=== PATIENT | female | born 1990 | race Caucasian/White ===

== ENCOUNTER 2017-10-01 01:39 | Emergency (ER) | payer OTHER, SELFPAY ==
[2017-10-01 01:56] VITALS: BP 138/96; PULSE 95; RESP 18; TEMP 36.4; O2SAT 100; BMI 36.0
--- NOTE | 2017-10-01 02:54 | ED.BACK ---
HPI - Back Pain/Injury General Chief Complaint: Back Pain/Injury Stated Complaint: BACK PAIN Time Seen by Provider: 10/01/17 01:49 Source: patient Mode of arrival: ambulatory Limitations: no limitations History of Present Illness HPI Narrative: Patient presents to the emergency department with a chief complaint of left lower back pain that started while she was at the [facility] see no about 1 hr ago. Her pain stays in the back and does not radiate. She denies any numbness, tingling or weakness. She denies any change in bowel or bladder control. She denies foot drop. She has had no injury. She denies any fever or chills. She does have a history of back pain not on like this. She has an extensive recent medical history largely for cardiac reasons. Patient recently was seen and evaluated at [facility] and had an inferior STEMI which required transfer to [facility] noting a clot in her LAD which was treated with thrombectomy. She had prolonged hospitalization for HIT MD Complaint: back pain Onset (ago): hour(s) Duration: constant Similar Symptoms Previously: Yes Location: lumbar spine Severity: mild Quality: aching Radiation: none Relieving factors: immobilization Exacerbating factors: movement and walking Associated symptoms: denies other symptoms Related Data Home Medications Medication Instructions Recorded Confirmed aspirin 10/01/17 lisinopril DAILY 10/01/17 metoprolol succinate 12.5 mg PO DAILY 10/01/17 10/01/17 warfarin 7.5 mg PO DAILY 10/01/17 10/01/17 Allergies Allergy/AdvReac Type Severity Reaction Status Date / Time heparin Allergy HIT Verified 10/01/17 02:01 cyclobenzaprine AdvReac angry Verified 10/01/17 02:01 [From Flexeril] Review of Systems Review of Systems All systems reviewed & are unremarkable except as noted in HPI and below Constitutional Denies chills, Denies fever(s), Denies lethargy and Denies weakness Eyes Denies change in vision, Denies eye discharge, Denies irritation and Denies loss of vision ENT Ears, Nose, Mouth, and Throat: Denies change in voice, Denies neck pain and Denies sore throat Cardiovascular Denies chest pain, Denies irregular heart rhythm, Denies lightheadedness, Denies palpitations, Denies dyspnea, Denies dyspnea on exertion and Denies orthopnea Respiratory Denies cough, Denies dyspnea, Denies dyspnea on exertion and Denies wheezing Gastrointestinal Gastrointestinal: Denies abdominal pain, Denies change in bowel habits, Denies diarrhea, Denies nausea and Denies vomiting Genitourinary Denies hematuria, Denies flank pain, Denies urinary incontinence and Denies urinary urgency Musculoskeletal Reports back pain and Denies neck pain Integumentary/Breasts Denies pruritus, Denies erythema, Denies rash and Denies wounds Neurologic Denies confusion, Denies loss of vision and Denies weakness Psychiatric Denies anxiety, Denies confusion, Denies depression, Denies homicidal ideation and Denies suicidal ideation Endocrine Denies palpitations Hematologic/Lymphatic Denies easy bruising Allergic/Immunologic Denies wheezing PFSH Medical History Carpal tunnel syndrome (Acute) Hyperglycemia (Acute) Myocardial infarct (Acute) Polycystic ovary syndrome (Acute) Social History Smoking Status: Never smoker Exam Narrative Exam Narrative: Pleasant 27-year-old female an no obvious significant distress, sitting upright on the cart Initial Vital Signs Initial Vital Signs: Vital Signs Temperature 97.5 F L 10/01/17 01:56 Pulse Rate 95 H 10/01/17 01:56 Respiratory Rate 18 10/01/17 01:56 Blood Pressure 138/96 H 10/01/17 01:56 Pulse Oximetry 100 10/01/17 01:56 Const General: cooperative and well developed Nutritional Appearance: well nourished Orientation: alert, awake, oriented x3 and not confused [facility] Head: normocephalic and atraumatic Ears: external ears normal and TM's normal bilaterally Nose: external nose normal and No nasal discharge Face and sinus: sinuses nontender, face symmetric, no sinus tenderness and No dry mucous membranes Mouth: oral mucosae normal and moist mucous membranes Teeth and gingiva: dentition normal Throat: tonsils normal and uvula midline Eyes General: appearance normal, both eyes and all related structures Eyelids: eyelids normal Conjunctivae: conjunctivae normal Sclera: sclerae normal Pupils: PERRL EOM: EOM intact bilaterally Neck Neck: normal visual inspection, trachea midline, No lymphadenopathy, No midline deformity and No JVD Lymphatic: No lymphedema Chest Chest: normal inspection of the chest Resp Effort & Inspection: normal respiratory effort, able to speak in complete sentences, no respiratory distress and no use of accessory muscles Auscultation: clear to auscultation bilaterally, no rales, no rhonchi and no wheezes Cardio Rate: regular rate Rhythm: regular rhythm Heart Sounds: no click, no gallops, no murmurs and no rubs Pulses: normal peripheral pulses GI Inspection: non-distended Palpation: soft, no hepatosplenomegaly, No guarding, No pulsatile mass and No tender Auscultation: normal bowel sounds Back/Spine/Pelvis Thoracic/Lumbar Spine: thoraco-lumbar ROM normal, No thoraco-lumbar ROM limited, lumbar spinal tenderness (Left-sided paraspinal muscles. No bony point tenderness or step-offs. No saddle anesthesia) and No straight leg raise positive Skin General: no rashes or lesions noted, No jaundice and No petechiae Neuro Cognition: normal cognition Speech: speech normal Motor: muscle tone normal throughout and strength 5/5 throughout Sensory Exam: no sensory deficits noted Other: Extrem General: full ROM, no clubbing, cyanosis or edema, no pedal edema and no calf tenderness Course Reevaluation(s) Reevaluation #1: Records reviewed from recent hospitalizations Vital Signs - 8 hr 10/01/17 01:56 Temperature 97.5 F L Pulse Rate 95 H Respiratory Rate 18 Blood Pressure 138/96 H Pulse Oximetry 100 MDM - Back Pain/Injury Differential Diagnosis Differential diagnosis: Likely lumbar radiculopathy, sciatica, strain of lumbar region, renal colic, pyelonephritis, thoracic back pain, AAA and discitis Medical Records Attestation: I reviewed the patient's medical records. Lab Data Attestation: I reviewed the patient's lab results. Discharge Plan Departure Prescriptions: No Action lisinopril 2.5 mg tablet DAILY RF: 0 aspirin 81 mg Tablet,Chewable RF: 0 warfarin 7.5 mg Tablet 7.5 mg PO DAILY RF: 0 metoprolol succinate 25 mg Tablet Extended Release 24 Hr 12.5 mg PO DAILY RF: 0
--- NOTE | 2017-10-01 02:57 | ED_ITS ---
HPI - Back Pain/Injury General Chief Complaint: Back Pain/Injury Stated Complaint: BACK PAIN Time Seen by Provider: 10/01/17 01:49 Source: patient Mode of arrival: ambulatory Limitations: no limitations History of Present Illness HPI Narrative: Patient presents to the emergency department with a chief complaint of left lower back pain that [facility]. Her pain stays in the back and does not radiate. She denies any numbness, tingling or weakness. She denies any change in bowel or bladder control. She denies foot drop. She has had no injury. She denies any fever or chills. She does have a history of back pain not on like this. She has an extensive recent medical history largely for cardiac reasons. Patient recently was seen and evaluated at [facility] and had an inferior STEMI which required transfer to [facility] noting a clot in her LAD which was treated with thrombectomy. She had prolonged hospitalization for HIT MD Complaint: back pain Onset (ago): hour(s) Duration: constant Similar Symptoms Previously: Yes Location: lumbar spine Severity: mild Quality: aching Radiation: none Relieving factors: immobilization Exacerbating factors: movement and walking Associated symptoms: denies other symptoms Related Data Home Medications Medication Instructions Recorded Confirmed aspirin 10/01/17 lisinopril DAILY 10/01/17 metoprolol succinate 12.5 mg PO DAILY 10/01/17 10/01/17 warfarin 7.5 mg PO DAILY 10/01/17 10/01/17 Allergies Allergy/AdvReac Type Severity Reaction Status Date / Time heparin Allergy HIT Verified 10/01/17 02:01 cyclobenzaprine AdvReac angry Verified 10/01/17 02:01 [From Flexeril] Review of Systems Review of Systems All systems reviewed & are unremarkable except as noted in HPI and below Constitutional Denies chills, Denies fever(s), Denies lethargy and Denies weakness Eyes Denies change in vision, Denies eye discharge, Denies irritation and Denies loss of vision ENT Ears, Nose, Mouth, and Throat: Denies change in voice, Denies neck pain and Denies sore throat Cardiovascular Denies chest pain, Denies irregular heart rhythm, Denies lightheadedness, Denies palpitations, Denies dyspnea, Denies dyspnea on exertion and Denies orthopnea Respiratory Denies cough, Denies dyspnea, Denies dyspnea on exertion and Denies wheezing Gastrointestinal Gastrointestinal: Denies abdominal pain, Denies change in bowel habits, Denies diarrhea, Denies nausea and Denies vomiting Genitourinary Denies hematuria, Denies flank pain, Denies urinary incontinence and Denies urinary urgency Musculoskeletal Reports back pain and Denies neck pain Integumentary/Breasts Denies pruritus, Denies erythema, Denies rash and Denies wounds Neurologic Denies confusion, Denies loss of vision and Denies weakness Psychiatric Denies anxiety, Denies confusion, Denies depression, Denies homicidal ideation and Denies suicidal ideation Endocrine Denies palpitations Hematologic/Lymphatic Denies easy bruising Allergic/Immunologic Denies wheezing PFSH Medical History Carpal tunnel syndrome (Acute) Hyperglycemia (Acute) Myocardial infarct (Acute) Polycystic ovary syndrome (Acute) Social History Smoking Status: Never smoker Exam Narrative Exam Narrative: Pleasant 27-year-old female an no obvious significant distress, sitting upright on the cart Initial Vital Signs Initial Vital Signs: Vital Signs Temperature 97.5 F L 10/01/17 01:56 Pulse Rate 95 H 10/01/17 01:56 Respiratory Rate 18 10/01/17 01:56 Blood Pressure 138/96 H 10/01/17 01:56 Pulse Oximetry 100 10/01/17 01:56 Const General: cooperative and well developed Nutritional Appearance: well nourished Orientation: alert, awake, oriented x3 and not confused [facility] Head: normocephalic and atraumatic Ears: external ears normal and TM's normal bilaterally Nose: external nose normal and No nasal discharge Face and sinus: sinuses nontender, face symmetric, no sinus tenderness and No dry mucous membranes Mouth: oral mucosae normal and moist mucous membranes Teeth and gingiva: dentition normal Throat: tonsils normal and uvula midline Eyes General: appearance normal, both eyes and all related structures Eyelids: eyelids normal Conjunctivae: conjunctivae normal Sclera: sclerae normal Pupils: PERRL EOM: EOM intact bilaterally Neck Neck: normal visual inspection, trachea midline, No lymphadenopathy, No midline deformity and No JVD Lymphatic: No lymphedema Chest Chest: normal inspection of the chest Resp Effort & Inspection: normal respiratory effort, able to speak in complete sentences, no respiratory distress and no use of accessory muscles Auscultation: clear to auscultation bilaterally, no rales, no rhonchi and no wheezes Cardio Rate: regular rate Rhythm: regular rhythm Heart Sounds: no click, no gallops, no murmurs and no rubs Pulses: normal peripheral pulses GI Inspection: non-distended Palpation: soft, no hepatosplenomegaly, No guarding, No pulsatile mass and No tender Auscultation: normal bowel sounds Back/Spine/Pelvis Thoracic/Lumbar Spine: thoraco-lumbar ROM normal, No thoraco-lumbar ROM limited , lumbar spinal tenderness (Left-sided paraspinal muscles. No bony point tenderness or step-offs. No saddle anesthesia) and No straight leg raise positive Skin General: no rashes or lesions noted, No jaundice and No petechiae Neuro Cognition: normal cognition Speech: speech normal Motor: muscle tone normal throughout and strength 5/5 throughout Sensory Exam: no sensory deficits noted Other: Extrem General: full ROM, no clubbing, cyanosis or edema, no pedal edema and no calf tenderness Course Reevaluation(s) Reevaluation #1: Records reviewed from recent hospitalizations Vital Signs - 8 hr 10/01/17 01:56 Temperature 97.5 F L Pulse Rate 95 H Respiratory Rate 18 Blood Pressure 138/96 H Pulse Oximetry 100 MDM - Back Pain/Injury Differential Diagnosis Differential diagnosis: Likely lumbar radiculopathy, sciatica, strain of lumbar region, renal colic, pyelonephritis, thoracic back pain, AAA and discitis Medical Records Attestation: I reviewed the patient's medical records. Lab Data Attestation: I reviewed the patient's lab results. Discharge Plan Departure Prescriptions: No Action lisinopril 2.5 mg tablet DAILY RF: 0 aspirin 81 mg Tablet,Chewable RF: 0 warfarin 7.5 mg Tablet 7.5 mg PO DAILY RF: 0 metoprolol succinate 25 mg Tablet Extended Release 24 Hr 12.5 mg PO DAILY RF: 0
--- NOTE | 2017-10-01 02:58 | PC.NURSE ---
Found pt lying in prone position to maximize the comfort per pt
[2017-10-01 04:50] VITALS: BP 115/79; PULSE 100; RESP 20; O2SAT 97
== END 2017-10-01 04:35 | disposition home or self-care (01) ==
PROVIDERS: Emergency Provider Emergency Medicine
DX: M54.9 Dorsalgia, unspecified (principal)
CPT/HCPCS: 81003; 81025; 99282

== ENCOUNTER 2018-10-19 20:42 | Emergency (ER) | payer OTHER, MEDICAID, SELFPAY ==
[2018-10-19 20:45] VITALS: BP 105/78; PULSE 74; RESP 18; TEMP 36.7; O2SAT 98
--- NOTE | 2018-10-19 21:28 | ED_ITS ---
HPI - Headache General Chief Complaint: Headache Stated Complaint: migraine Time Seen by Provider: 10/19/18 21:28 Source: patient Mode of arrival: ambulatory Limitations: no limitations History of Present Illness HPI Narrative: The patient developed a right parietal and periorbital headache 2 days ago. She has photophobia, nausea vomiting. The headache is consistent with her previous existing migraine headaches. She has no associated fever chills, no current illness. She has no focal weakness or numbness. She has no diarrhea associated with the nausea vomiting. She denies abdominal pain. She is anticoagulated with Coumadin due to a myocardial infarction. She has had no associated head trauma. She has no associated weakness, dizziness or confusion. She has no neck pain. She previously took Maxalt for migraines. She has no steady medication now that she is using for migraine control. Related Data Home Medications Medication Instructions Recorded Confirmed aspirin 81 mg PO DAILY 10/01/17 10/19/18 lisinopril 2.5 mg PO DAILY 10/01/17 10/19/18 metoprolol succinate 12.5 mg PO DAILY 10/01/17 10/19/18 warfarin 7.5 mg PO DAILY 10/01/17 10/19/18 Previous Rx's Medication Instructions Recorded hydrocodone 5 mg-acetaminophen 325 1 tab PO Q6-8H PRN #10 tab 10/04/17 mg tablet erenumab-aooe 70 mg/mL 70 mg SUBCUT QMONTH #1 ml 02/08/18 subcutaneous auto-injector Allergies Allergy/AdvReac Type Severity Reaction Status Date / Time heparin Allergy HIT Verified 10/19/18 20:48 cyclobenzaprine AdvReac angry Verified 10/19/18 20:48 [From Flexeril] Review of Systems Review of Systems ROS Unobtainable: All systems reviewed & are unremarkable except as noted in HPI and below Constitutional Denies chills, Denies fever(s), Reports headache(s), Denies lethargy and Denies weakness Eyes Denies change in vision, Denies loss of vision, Denies seeing flashes, Reports photophobia, Denies spots in vision and Denies tunnel vision ENT Ears, Nose, Mouth, and Throat: Denies change in voice, Denies dizziness, Reports headache(s), Denies neck pain and Denies sore throat Cardiovascular Denies chest pain, Denies lightheadedness, Denies palpitations, Denies dyspnea a nd Denies orthopnea Respiratory Denies cough, Denies dyspnea and Denies wheezing Gastrointestinal Gastrointestinal: Denies abdominal pain, Denies change in bowel habits, Denies diarrhea, Denies nausea and Reports vomiting Genitourinary Denies dysuria Musculoskeletal Denies back pain and Denies neck pain Integumentary/Breasts Denies erythema and Denies rash Neurologic Reports as per HPI, Denies behavioral changes, Denies confusion, Denies dizziness, Reports headache(s), Denies loss of vision and Denies weakness Psychiatric Denies anxiety, Denies behavioral changes and Denies confusion Endocrine Denies palpitations Allergic/Immunologic Denies wheezing [facility] Medical History (Updated 10/19/18 @ 22:27 by Dave Hale MD) Migraine headache (Acute) Carpal tunnel syndrome (Acute) Hyperglycemia (Acute) Myocardial infarct (Acute) Polycystic ovary syndrome (Acute) Social History Smoking Status: Never smoker Social History Smoking Status: Never smoker Exam Initial Vital Signs Initial Vital Signs: Vital Signs Temperature 98.1 F 10/19/18 20:45 Pulse Rate 74 10/19/18 20:45 Respiratory Rate 18 10/19/18 20:45 Blood Pressure 105/78 10/19/18 20:45 Pulse Oximetry 98 10/19/18 20:45 Const General: cooperative and well developed Nutritional Appearance: well nourished Orientation: alert, awake, oriented x3 and not confused [facility] Head: normocephalic and atraumatic Face and sinus: sinuses nontender and face symmetric Mouth: moist mucous membranes Teeth and gingiva: dentition normal Throat: tonsils normal and uvula midline Eyes General: appearance normal, both eyes and all related structures Eyelids: eyelids normal Conjunctivae: conjunctivae normal Sclera: sclerae normal Pupils: PERRL EOM: EOM intact bilaterally Neck Neck: supple, No lymphadenopathy and No tender Chest Chest: normal inspection of the chest Resp Effort & Inspection: normal respiratory effort and able to speak in complete sentences Auscultation: clear to auscultation bilaterally, no rales, no rhonchi and no wheezes Cardio Rate: regular rate Rhythm: regular rhythm Heart Sounds: no click, no gallops, no murmurs and no rubs Pulses: normal peripheral pulses GI Inspection: non-distended Palpation: soft, no hepatosplenomegaly, No guarding, No pulsatile mass and No tender Auscultation: normal bowel sounds Back/Spine/Pelvis Back: No CVA tenderness Thoracic/Lumbar Spine: thoracic and lumbar spine normal to inspection Skin General: no rashes or lesions noted, No jaundice and No petechiae Neuro General: alert, oriented x3, gait normal and no focal motor deficits Speech: speech normal Extrem General: full ROM, no clubbing, cyanosis or edema, no pedal edema and no calf tenderness Psych Appearance: well kempt Mental Status: mental status grossly normal Attitude: cooperative Thought Content: normal and suicidality Judgment: judgment good Course Course Narrative: Her headache has resolved the medications given. She is feeling much better. She will be discharged home with instructions orally hydrating him plenty of rest tonight. 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 Orders Ordered: Discontinued Medications Acetaminophen (Tylenol) 650 mg PO NOW ONE Stop: 10/19/18 21:34 Last Admin: 10/19/18 21:40 Dose: 650 mg Hydromorphone HCl (Dilaudid) 1 mg IM NOW ONE Stop: 10/19/18 21:34 Last Admin: 10/19/18 21:40 Dose: 1 mg Ondansetron HCl (Zofran Odt) 4 mg SL NOW ONE Stop: 10/19/18 21:34 Last Admin: 10/19/18 21:40 Dose: 4 mg Vital Signs - 8 hr 10/19/18 20:45 Temperature 98.1 F Pulse Rate 74 Respiratory Rate 18 Blood Pressure 105/78 Pulse Oximetry 98 Discharge Plan Departure Patient Disposition: Home Clinical Impression: Migraine Qualifiers: Migraine type: hemiplegic Status migrainosus presence: without status migrainosus Intractability: intractable Qualified Code(s): 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 Tonight, rest at home and hydrate well. Return to ER as necessary. Prescriptions: No Action lisinopril 2.5 mg tablet 2.5 mg PO DAILY RF: 0 aspirin 81 mg Tablet,Chewable 81 mg PO DAILY RF: 0 warfarin 7.5 mg Tablet 7.5 mg PO DAILY RF: 0 metoprolol succinate 25 mg Tablet Extended Release 24 Hr 12.5 mg PO DAILY RF: 0 hydrocodone-acetaminophen 5-325 mg tablet 1 tab PO Q6-8H PRN (Reason: pain) Qty: 10 RF: 0 erenumab-aooe [Aimovig Autoinjector] 70 mg/mL auto-injector 70 mg SUBCUT QMONTH Qty: 1 RF: 11 Referrals: Anisha Singleton MD [Primary Care Provider] - Stand Alone Forms: Work Release Note
[2018-10-19] MEDS: ONDANSETRON 4 MG ODT SL (21:40)
[2018-10-19] MEDS: HYDROMORPHONE 1 MG INJ IM (21:40)
[2018-10-19] MEDS: ACETAMINOPHEN 325 MG TABLET 650 MG PO (21:40)
[2018-10-19 22:21] VITALS: BP 118/88; PULSE 86; RESP 16; O2SAT 96
== END 2018-10-19 22:35 | disposition home or self-care (01) ==
PROVIDERS: Emergency Provider Emergency Medicine; PCP Family Medicine
DX: G43.419 Hemiplegic migraine, intractable, without status migrainosus (principal)
CPT/HCPCS: 96372; 99282; 99283; J1170

== ENCOUNTER 2018-11-27 19:48 | Emergency (ER) | payer OTHER, SELFPAY ==
[2018-11-27 19:58] VITALS: BP 154/96; PULSE 88; RESP 14; TEMP 36.9; O2SAT 99; BMI 40.7
--- NOTE | 2018-11-27 20:04 | ED.EXTPRO ---
HPI - Extremity Problem <VENTURA Orlando - Last Filed: 11/27/18 21:52> General Chief complaint: Extremity Problem,Nontraumatic Stated complaint: rt shoulder pain Time Seen by Provider: 11/27/18 19:52 Source: patient Mode of arrival: ambulatory Limitations: no limitations History of Present Illness HPI Narrative: 28-year-old female with a history of past CO, presents emergency department complaining of 6/10 aching pain that is worse with movement and lifting objects and better with rest. Patient states this pain started around 11:00 a.m. today after she was moving a heavy object. She denies any previous injury to her shoulder, denies taking any medications for this, or denies any trauma. She denies headaches, chest pain, shortness of breath, abdominal pain, nausea, vomiting, or diarrhea. She states she is ?sterilized ?and denies the possibility of being . Patient states that she has been treated by a chiropractor for very tight muscles, she states mother cap and a works very well for her when she has spasms. Related Data Home Medications Medication Instructions Recorded Confirmed aspirin 81 mg PO DAILY 10/01/17 10/19/18 lisinopril 2.5 mg PO DAILY 10/01/17 10/19/18 metoprolol succinate 12.5 mg PO DAILY 10/01/17 10/19/18 warfarin 7.5 mg PO DAILY 10/01/17 10/19/18 Previous Rx's Medication Instructions Recorded hydrocodone 5 mg-acetaminophen 325 1 tab PO Q6-8H PRN #10 tab 10/04/17 mg tablet erenumab-aooe 70 mg/mL 70 mg SUBCUT QMONTH #1 ml 02/08/18 subcutaneous auto-injector methocarbamol 500 mg PO DAILY PRN #10 tab 11/27/18 Allergies Allergy/AdvReac Type Severity Reaction Status Date / Time heparin Allergy HIT Verified 11/27/18 19:58 cyclobenzaprine AdvReac angry Verified 11/27/18 19:58 [From Flexeril] Review of Systems <VENTURA Orlando - Last Filed: 11/27/18 21:52> Review of Systems REVIEW OF SYSTEMS: GENERAL: Denies fever or chills. HENT: No head trauma. EYES: No double vision or vision loss. CARDIOVASCULAR: No chest pain or syncope. RESPIRATORY: No shortness of breath or cough. GASTROINTESTINAL: No nausea, vomiting, diarrhea, or constipation. GENITOURINARY: No flank pain or dysuria. MUSCULOSKELETAL: Complains of right neck pain, see HPI. INTEGUMENTARY: No rash, lesions, or pruritus. NEURO: No numbness, tingling. PSYCH: No behavior or mood changes. PFSH <VENTURA Orlando - Last Filed: 11/27/18 21:52> Medical History Carpal tunnel syndrome (Acute) Hyperglycemia (Acute) Migraine headache (Acute) Myocardial infarct (Acute) Polycystic ovary syndrome (Acute) Social History Smoking Status: Never smoker Social History Smoking Status: Never smoker Exam <VENTURA Orlando - Last Filed: 11/27/18 21:52> Initial Vital Signs Initial Vital Signs: Vital Signs Temperature 98.5 F 11/27/18 19:58 Pulse Rate 88 11/27/18 19:58 Respiratory Rate 14 11/27/18 19:58 Blood Pressure 154/96 H 11/27/18 19:58 Pulse Oximetry 99 11/27/18 19:58 PHYSICAL EXAMINATION: GENERAL: Well groomed, alert, and cooperative. Answers questions promptly and appropriately. Vital signs noted. HENT: Normocephalic, atraumatic. EYES: Symmetrical, sclera white, no periorbital swelling. CARDIOVASCULAR: S1 and S2 sounds normal. Regular rate and rhythm, no murmurs, clicks, or bruits. No pedal edema. RESPIRATORY: Normal respiratory rate, trachea midline, airway patent. No stridor, nasal flaring or accessory muscle use. Lungs are clear in all armendariz. MUSCULOSKELETAL: Palpable muscle spasm to right trapezius muscle, tenderness with palpation. Limited neck rotation due to pain, full range of motion of shoulders and elbows. No erythema or ecchymosis noted. Normal gait and coordination. Equal tone and mass bilaterally. No spinal tenderness or deformities. EXTREMITIES: CMS intact. No pedal edema. SKIN: Warm, dry, soft, appropriate color for ethnicity. No lesions, rashes, or wounds. NEURO: Alert and Oriented X 3. No sensory deficits. PSYCH: Appropriate affect and mood. <Ezra Ohara DO - Last Filed: 11/27/18 22:42> Initial Vital Signs Initial Vital Signs: Vital Signs Temperature 98.5 F 11/27/18 19:58 Pulse Rate 88 11/27/18 19:58 Respiratory Rate 14 11/27/18 19:58 Blood Pressure 154/96 H 11/27/18 19:58 Pulse Oximetry 99 11/27/18 19:58 Course <VENTURA Orlando - Last Filed: 11/27/18 21:52> Course Narrative: Discussed with patient that an x-ray would not be beneficial in diagnosis due to palpable muscle spasm on lack of trauma, asthma suspicion for fracture was very very low. Patient requested methocarbamol she stated this has worked for in the past. Vital Signs - 8 hr 11/27/18 19:58 Temperature 98.5 F Pulse Rate 88 Respiratory Rate 14 Blood Pressure 154/96 H Pulse Oximetry 99 <Ezra Ohara DO - Last Filed: 11/27/18 22:42> Vital Signs - 8 hr 11/27/18 19:58 Temperature 98.5 F Pulse Rate 88 Respiratory Rate 14 Blood Pressure 154/96 H Pulse Oximetry 99 MDM - Extremity (Nontraumatic) <VENTURA Orlando - Last Filed: 11/27/18 21:52> MDM Narrative Medical decision making narrative: Differential includes muscle spasm (most likely due to palpable muscle spasm, tenderness with palpation, lack of tenderness with palpation to bones, lack of trauma) or muscle strain (report of pain occurring after lifting heavy objects). Less likely infectious or cardiac in nature due to lack of systemic symptoms such as fever, reports onset after lifting, pain is reproducible on palpation. Discharge Plan Departure Patient Disposition: Home Clinical Impression: Acute shoulder pain Qualifiers: Laterality: right Qualified Code(s): M25.511 - Pain in right shoulder Discharge Date/Time: 11/27/18 20:15 Interventions: ED Discharge Assessment Last Done: 11/27/18 20:15 Instructions: DI for Shoulder Pain Activity Restrictions/Additional Instructions: Thank you for entrusting me with your care today. As discussed, I believe your shoulder pain is caused from a soft tissue injury such as a strain or a sprain. As we discussed an x-ray it would not provide much more information. I prescribed a muscle relaxer, this can make you drowsy so do not drive with this medication. Follow up with her primary care provider in the next week for recheck and or referral to physical therapy if indicated. Please follow-up with your anticoagulation clinic for blood tests as any medication can interfere with your warfarin. Return to the emergency department if he develops syncope, chest pain, shortness of breath, or high fevers. Prescriptions: New methocarbamol 500 mg tablet 500 mg PO DAILY PRN (Reason: muscle spasm) Qty: 10 RF: 0 No Action lisinopril 2.5 mg tablet 2.5 mg PO DAILY RF: 0 aspirin 81 mg Tablet,Chewable 81 mg PO DAILY RF: 0 warfarin 7.5 mg Tablet 7.5 mg PO DAILY RF: 0 metoprolol succinate 25 mg Tablet Extended Release 24 Hr 12.5 mg PO DAILY RF: 0 hydrocodone-acetaminophen 5-325 mg tablet 1 tab PO Q6-8H PRN (Reason: pain) Qty: 10 RF: 0 erenumab-aooe [Aimovig Autoinjector] 70 mg/mL auto-injector 70 mg SUBCUT QMONTH Qty: 1 RF: 11 Referrals: Anisha Singleton MD [Primary Care Provider] - Stand Alone Forms: Work Release Note <Ezra Ohara DO - Last Filed: 11/27/18 22:42> [facility] Jose Attestation: I was available for consultation during this patient's emergency department encounter
== END 2018-11-27 20:15 | disposition home or self-care (01) ==
PROVIDERS: Emergency Provider Nurse Practitioner; PCP Family Medicine
DX: M25.511 Pain in right shoulder (principal); X50.9XXA Other and unspecified overexertion or strenuous movements or postures, initial encounter
CPT/HCPCS: 99282; 99283

== ENCOUNTER 2018-12-06 07:37 | Emergency (ER) | payer OTHER, SELFPAY ==
[2018-12-06 07:47] VITALS: BP 145/101; PULSE 82; RESP 18; TEMP 36.8; O2SAT 99; BMI 40.7
--- NOTE | 2018-12-06 07:53 | ED.HA ---
HPI - Headache General Chief Complaint: Headache Stated Complaint: right side neck/migraine pain Time Seen by Provider: 12/06/18 07:41 Source: patient and family () Mode of arrival: ambulatory History of Present Illness HPI Narrative: This is a 28-year-old female comes to the emergency department complaint of right-sided neck pain and migraine. Patient states she has a history of migraines. She gets them fairly frequently. She tried to extra try Tylenol at about midnight without much improvement. Patient states that some she does not get any aura but she does get sort of hypersalivation which is typical for her migraines. She states she also has been a little nauseated but no vomiting. She is also complaining of some pain on the right side of her neck. This has been going on for several days. She has sort of chronic back issues, she was here previously for right shoulder discomfort. Patient states no trauma that she recalls. She did go to a chiropractor she states her neck felt great today of an after she started have some discomfort and feeling of tightness like her neck is stretched. It is more uncomfortable for her to rotate her neck to the right side which is the side that hurts. She states that is also the side that she sleeps on. She has not had any fevers. No neurologic changes. No vomiting, no other GI or urinary symptoms. No weakness, no numbness. She has sick history significant for SD and takes Coumadin, hypertensive medications and atorvastatin. Patient patient states she was told she had blood clots although she does not recognize the word pulmonary embolism, she describes what sounds like a PFO that she was told this was likely the cause her issue. She did try a methocarbamol at home without much improvement. She is also currently in between primary care providers. She states that she has had sterilization. Has allergies to Flexeril and heparin, denies tobacco, rare alcohol, occasional CBD. Related Data Home Medications Medication Instructions Recorded Confirmed aspirin 81 mg PO DAILY 10/01/17 10/19/18 lisinopril 2.5 mg PO DAILY 10/01/17 10/19/18 metoprolol succinate 12.5 mg PO DAILY 10/01/17 10/19/18 warfarin 7.5 mg PO DAILY 10/01/17 10/19/18 Previous Rx's Medication Instructions Recorded hydrocodone 5 mg-acetaminophen 325 1 tab PO Q6-8H PRN #10 tab 10/04/17 mg tablet erenumab-aooe 70 mg/mL 70 mg SUBCUT QMONTH #1 ml 02/08/18 subcutaneous auto-injector methocarbamol 500 mg PO DAILY PRN #10 tab 11/27/18 Allergies Allergy/AdvReac Type Severity Reaction Status Date / Time heparin Allergy HIT Verified 12/06/18 07:52 cyclobenzaprine AdvReac angry Verified 12/06/18 07:52 [facility] Review of Systems Review of Systems ROS Unobtainable: All systems reviewed & are unremarkable except as noted in HPI and below Constitutional Denies chills, Denies excessive sweating, Denies fever(s), Reports headache(s), Denies lethargy, Denies malaise and Denies weakness Eyes Denies change in vision ENT Ears, Nose, Mouth, and Throat: Reports as per HPI, Reports headache(s), Denies neck mass, Reports neck pain, Denies throat swelling and Reports other (Hypersalivation) Cardiovascular Denies chest pain, Denies syncope, Denies irregular heart rhythm, Denies lightheadedness, Denies palpitations, Denies dyspnea and Denies dyspnea on exertion Respiratory Denies change in phlegm color, Denies chest congestion, Denies cough, Denies dyspnea and Denies dyspnea on exertion Gastrointestinal Gastrointestinal: Denies abdominal pain, Denies change in bowel habits, Denies diarrhea, Reports nausea (Mild) and Denies vomiting Genitourinary Reports amenorrhea (sterilized per patient), Denies hematuria, Denies urinary frequency, Denies dysuria, Denies flank pain, Denies urinary incontinence and Denies urinary urgency Musculoskeletal Reports as per HPI, Denies abnormal gait, Reports back pain (chronic), Denies myalgias, Reports limited range of motion, Denies muscle cramps, Denies muscle weakness, Reports neck pain, Denies numbness, Denies radiating pain into limb, Denies stiffness, Denies tingling and Reports other (muscle spasm in neck) Integumentary/Breasts Denies pruritus, Denies erythema, Denies rash and Denies wounds Neurologic Denies abnormal speech, Denies abnormal gait, Denies confusion, Denies syncope, Reports headache(s), Denies focal weakness, Denies numbness, Denies other visual disturbances, Denies radicular pain, Denies sensory deficit, Denies tingling and Denies weakness Psychiatric Denies confusion Endocrine Denies excessive sweating and Denies palpitations Allergic/Immunologic Denies throat swelling [facility] Medical History Carpal tunnel syndrome (Acute) Hyperglycemia (Acute) Migraine headache (Acute) Myocardial infarct (Acute) Polycystic ovary syndrome (Acute) Social History Smoking Status: Never smoker Social History (Updated 12/06/18 @ 07:59 by Emma Gloria DO) Smoking Status: Never smoker alcohol intake: current substance use type: marijuana Exam Narrative Exam Narrative: GEN: Obese, well appearing female, alert and oriented x 3, patient appears to be in no acute distress. HEENT: Atraumatic, pupils are equal round reactive to light, extraocular movements are intact, nares are clear, TMs are clear with no fluid. Throat is clear without any exudates, erythema, tonsillar enlargement or uvular deviation, patient does have hirsutism of face. NECK: Patient has very mild tenderness over the C-spine in all vertebrae. She has normal range of motion but does for to hold a little bit to the left. Patient can rotate to the right fully as well as the left. She can extend and flex but patient does have quite a bit of muscle tightness in the paraspinal muscles on the right as well as in the trapezius on the right greater than left but noted bilaterally. Thyroid palpated but does not feel enlarged on exam. No skin color changes. HEART: Regular rate and rhythm without murmur, clicks, rubs. Pulses are equal in upper and lower extremities LUNGS:Lungs clear to auscultation, no wheezes, rales, crackles, chest moves symmetrically ABD:bowel sounds normal, soft, non-tender, no guarding, rebound, rigidity, no masses noted, no hepatosplenomegaly :No CVA tenderness MSCL: Non-tender, no muscle atrophy, muscles strength 5/5 upper and lower extremities, full range of motion, normal gait NEURO:CN 2-12 intact, sensation normal SKIN: no erythema, no rash, no ecchymosis, no petechiae Initial Vital Signs Initial Vital Signs: Vital Signs Temperature 98.3 F 12/06/18 07:47 Pulse Rate 82 12/06/18 07:47 Respiratory Rate 18 12/06/18 07:47 Blood Pressure 145/101 H 12/06/18 07:47 Pulse Oximetry 99 12/06/18 07:47 Course Orders Ordered: ED Orders 12/06/18 07:53 XR cervical spine 2V or 3V Stat 12/06/18 08:05 Prothrombin Time INR Stat Discontinued Medications Hydrocodone Bitart/Acetaminophen ([place] 5/325) 1 tab PO NOW ONE Stop: 12/06/18 07:54 Last Admin: 12/06/18 07:59 Dose: 1 tab Ondansetron HCl (Zofran Odt) 4 mg SL NOW ONE Stop: 12/06/18 07:54 Last Admin: 12/06/18 07:59 Dose: 4 mg Vital Signs - 8 hr 12/06/18 07:47 12/06/18 08:52 Temperature 98.3 F Pulse Rate 82 67 Respiratory Rate 18 20 Blood Pressure 145/101 H 107/51 L Pulse Oximetry 99 98 MDM - Headache Lab Data Attestation: I reviewed the patient's lab results. Lab Results 12/06/18 Range/Units 08:05 PT 18.4 H (10.1-12.7) SECONDS INR 1.6 H (0.9-1.3) Imaging Data C-spine x-ray: Radiologist's impression: [address] [address] XRay Report Signed Patient: Deb Macario MMR#: [id number] : 1990Acct:[id number] Age/Sex: te of Service: 12/06/18 Loc: ED Accession Number: [id number] Procedure: XR cervical spine 2V or 3V Ordering Provider: Emma Gloria D.O. PROCEDURE: XR CERVICAL SPINE 2V OR 3V INDICATIONS: neck pain, had shoulder pain last visit, headache TECHNIQUE: 3 view(s) of the cervical spine were acquired. COMPARISON: None. FINDINGS: Bones: No fractures or dislocations to the C7 level. The lateral masses of C1 appear intact on the odontoid view. No suspicious bony lesions. Soft tissues: No prevertebral soft tissue swelling. IMPRESSION: No acute radiographic findings. If there is continued pain, followup exam or additional imaging such as MRI or CT could be performed for further assessment. Dictated by: Keesha Kate M.D. on 12/06/2018 at 8:33 Approved by: Keesha Kate M.D. on 12/06/2018 at 8:34 [facility] Narrative Medical decision making narrative: Discussed with patient plan for C-spine x-ray as she has possible traumatic injury or degenerative changes although she felt better after seeing the chiropractor my suspicion is more that she has some muscle tension post adjustment. Migraine is her typical pattern except for neck discomfort. Patient is on coumadin for 'blood clots' she has not had her INR checked in a month or two. Plan to check today, she has been taking her medication. Discussed what has been helpful for her migraines in the past and she states vicodin. Will try a dose of oral vicodin along with zofran for her nausea and then re-evaluate. Patient also requesting referral for pcp. Patient INR is 1.6, discussed to take extra dose today and can return for recheck in next 2 days. She has not taken her coumadin today. Also states she's been eating a lot of potatoes. Patient states she has plenty of her medications plus refills. We discussed her PCP is on [facility] but they have trouble with transportation, she can return here or she can go to outpatient lab, given a prescription with results to Dr. Singleton and she can follow up results via phone with recommendations on her medication dosing. Patient is feeling more comfortable and states medications are kicking in. She feels comfortable to return home when offered vs. watching longer for resolution of symptoms. All questions answered. Patient ambulated from department without issue. Discharge Plan Departure Patient Disposition: Home Clinical Impression: Cervical paraspinous muscle spasm Migraine Qualifiers: Migraine type: unspecified Status migrainosus presence: without status migrainosus Intractability: not intractable Qualified Code(s): G43.909 - Migraine, unspecified, not intractable, without status migrainosus Discharge Date/Time: 12/06/18 08:53 Interventions: ED Discharge Assessment Last Done: 12/06/18 08:52 Instructions: DI for Migraine Activity Restrictions/Additional Instructions: Follow up with primary care for your medication and regular INR checks. Call [phone] for the health water resources program director to assist you in findings a physician. Continue home medications as prescribed. Your INR is 1.6 today, take an extra dose of coumadin today and get recheck in the next 2 days. You may use heat to the affected area 4 times daily. Return to the ER for fevers greater than 100.4F, rapidlyl worsening headaches, new vision changes, speech difficulties, weakness, numbness, persistent vomiting, new chest pain or shortness of breath, incontinence or other new or concerning symptoms. Prescriptions: No Action lisinopril 2.5 mg tablet 2.5 mg PO DAILY RF: 0 aspirin 81 mg Tablet,Chewable 81 mg PO DAILY RF: 0 warfarin 7.5 mg Tablet 7.5 mg PO DAILY RF: 0 metoprolol succinate 25 mg Tablet Extended Release 24 Hr 12.5 mg PO DAILY RF: 0 methocarbamol 500 mg tablet 500 mg PO DAILY PRN (Reason: muscle spasm) Qty: 10 RF: 0 hydrocodone-acetaminophen 5-325 mg tablet 1 tab PO Q6-8H PRN (Reason: pain) Qty: 10 RF: 0 erenumab-aooe [Aimovig Autoinjector] 70 mg/mL auto-injector 70 mg SUBCUT QMONTH Qty: 1 RF: 11 Referrals: Anisha Singleton MD [Primary Care Provider] - Stand Alone Forms: Work Release Note
[2018-12-06] MEDS: HYDROCODONE/ACET 5/325 TABLET 1 TAB PO (07:59)
[2018-12-06] MEDS: ONDANSETRON 4 MG ODT SL (07:59)
--- NOTE | 2018-12-06 08:05 | ED_ITS ---
HPI - Headache General Chief Complaint: Headache Stated Complaint: right side neck/migraine pain Time Seen by Provider: 12/06/18 07:41 Source: patient and family () Mode of arrival: ambulatory History of Present Illness HPI Narrative: This is a 28-year-old female comes to the emergency department complaint of right-sided neck pain and migraine. Patient states she has a history of migraines. She gets them fairly frequently. She tried to extra try Tylenol at about midnight without much improvement. Patient states that some she does not get any aura but she does get sort of hypersalivation which is typical for her migraines. She states she also has been a little nauseated but no vomiting. She is also complaining of some pain on the right side of her neck. This has been going on for several days. She has sort of chronic back issues, she was here previously for right shoulder discomfort. Patient states no trauma that she recalls. She did go to a chiropractor she states her neck felt great today of an after she started have some discomfort and feeling of tightness like her neck is stretched. It is more uncomfortable for her to rotate her neck to the right side which is the side that hurts. She states that is also the side that she sleeps on. She has not had any fevers. No neurologic changes. No vomiting, no other GI or urinary symptoms. No weakness, no numbness. She has sick history significant for CA and takes Coumadin, hypertensive medications and atorvastatin. Patient patient states she was told she had blood clots although she does not recognize the word pulmonary embolism, she describes what sounds like a PFO that she was told this was likely the cause her issue. She did try a methocarbamol at home without much improvement. She is also currently in between primary care providers. She states that she has had sterilization. Has allergies to Flexeril and heparin, denies tobacco, rare alcohol, occasional CBD. Related Data Home Medications Medication Instructions Recorded Confirmed aspirin 81 mg PO DAILY 10/01/17 10/19/18 lisinopril 2.5 mg PO DAILY 10/01/17 10/19/18 metoprolol succinate 12.5 mg PO DAILY 10/01/17 10/19/18 warfarin 7.5 mg PO DAILY 10/01/17 10/19/18 Previous Rx's Medication Instructions Recorded hydrocodone 5 mg-acetaminophen 325 1 tab PO Q6-8H PRN #10 tab 10/04/17 mg tablet erenumab-aooe 70 mg/mL 70 mg SUBCUT QMONTH #1 ml 02/08/18 subcutaneous auto-injector methocarbamol 500 mg PO DAILY PRN #10 tab 11/27/18 Allergies Allergy/AdvReac Type Severity Reaction Status Date / Time heparin Allergy HIT Verified 12/06/18 07:52 cyclobenzaprine AdvReac angry Verified 12/06/18 07:52 [facility] Review of Systems Review of Systems ROS Unobtainable: All systems reviewed & are unremarkable except as noted in HPI and below Constitutional Denies chills, Denies excessive sweating, Denies fever(s), Reports headache(s), Denies lethargy, Denies malaise and Denies weakness Eyes Denies change in vision ENT Ears, Nose, Mouth, and Throat: Reports as per HPI, Reports headache(s), Denies neck mass, Reports neck pain, Denies throat swelling and Reports other (Hypersalivation) Cardiovascular Denies chest pain, Denies syncope, Denies irregular heart rhythm, Denies li ghtheadedness, Denies palpitations, Denies dyspnea and Denies dyspnea on exertion Respiratory Denies change in phlegm color, Denies chest congestion, Denies cough, Denies dyspnea and Denies dyspnea on exertion Gastrointestinal Gastrointestinal: Denies abdominal pain, Denies change in bowel habits, Denies diarrhea, Reports nausea (Mild) and Denies vomiting Genitourinary Reports amenorrhea (sterilized per patient), Denies hematuria, Denies urinary frequency, Denies dysuria, Denies flank pain, Denies urinary incontinence and Denies urinary urgency Musculoskeletal Reports as per HPI, Denies abnormal gait, Reports back pain (chronic), Denies myalgias, Reports limited range of motion, Denies muscle cramps, Denies muscle weakness, Reports neck pain, Denies numbness, Denies radiating pain into limb, Denies stiffness, Denies tingling and Reports other (muscle spasm in neck) Integumentary/Breasts Denies pruritus, Denies erythema, Denies rash and Denies wounds Neurologic Denies abnormal speech, Denies abnormal gait, Denies confusion, Denies syncope, Reports headache(s), Denies focal weakness, Denies numbness, Denies other visual disturbances, Denies radicular pain, Denies sensory deficit, Denies tingling and Denies weakness Psychiatric Denies confusion Endocrine Denies excessive sweating and Denies palpitations Allergic/Immunologic Denies throat swelling [facility] Medical History Carpal tunnel syndrome (Acute) Hyperglycemia (Acute) Migraine headache (Acute) Myocardial infarct (Acute) Polycystic ovary syndrome (Acute) Social History Smoking Status: Never smoker Social History (Updated 12/06/18 @ 07:59 by Emma Gloria DO) Smoking Status: Never smoker alcohol intake: current substance use type: marijuana Exam Narrative Exam Narrative: GEN: Obese, well appearing female, alert and oriented x 3, patient appears to be in no acute distress. HEENT: Atraumatic, pupils are equal round reactive to light, extraocular movements are intact, nares are clear, TMs are clear with no fluid. Throat is clear without any exudates, erythema, tonsillar enlargement or uvular deviation, patient does have hirsutism of face. NECK: Patient has very mild tenderness over the C-spine in all vertebrae. She has normal range of motion but does for to hold a little bit to the left. Patient can rotate to the right fully as well as the left. She can extend and flex but patient does have quite a bit of muscle tightness in the paraspinal muscles on the right as well as in the trapezius on the right greater than left but noted bilaterally. Thyroid palpated but does not feel enlarged on exam. No skin color changes. HEART: Regular rate and rhythm without murmur, clicks, rubs. Pulses are equal in upper and lower extremities LUNGS:Lungs clear to auscultation, no wheezes, rales, crackles, chest moves sy mmetrically ABD:bowel sounds normal, soft, non-tender, no guarding, rebound, rigidity, no masses noted, no hepatosplenomegaly :No CVA tenderness MSCL: Non-tender, no muscle atrophy, muscles strength 5/5 upper and lower extremities, full range of motion, normal gait NEURO:CN 2-12 intact, sensation normal SKIN: no erythema, no rash, no ecchymosis, no petechiae Initial Vital Signs Initial Vital Signs: Vital Signs Temperature 98.3 F 12/06/18 07:47 Pulse Rate 82 12/06/18 07:47 Respiratory Rate 18 12/06/18 07:47 Blood Pressure 145/101 H 12/06/18 07:47 Pulse Oximetry 99 12/06/18 07:47 Course Orders Ordered: ED Orders 12/06/18 07:53 XR cervical spine 2V or 3V Stat 12/06/18 08:05 Prothrombin Time INR Stat Discontinued Medications Hydrocodone Bitart/Acetaminophen ([place] 5/325) 1 tab PO NOW ONE Stop: 12/06/18 07:54 Last Admin: 12/06/18 07:59 Dose: 1 tab Ondansetron HCl (Zofran Odt) 4 mg SL NOW ONE Stop: 12/06/18 07:54 Last Admin: 12/06/18 07:59 Dose: 4 mg Vital Signs - 8 hr 12/06/18 07:47 12/06/18 08:52 Temperature 98.3 F Pulse Rate 82 67 Respiratory Rate 18 20 Blood Pressure 145/101 H 107/51 L Pulse Oximetry 99 98 MDM - Headache Lab Data Attestation: I reviewed the patient's lab results. Lab Results 12/06/18 Range/Units 08:05 PT 18.4 H (10.1-12.7) SECONDS INR 1.6 H (0.9-1.3) Imaging Data C-spine x-ray: Radiologist's impression: [address] [address] XRay Report Signed Patient: Deb Macario MMR#: [id number] : 1990Acct:[id number] Age/Sex: te of Service: 12/06/18 Loc: ED Accession Number: [id number] Procedure: XR cervical spine 2V or 3V Ordering Provider: Emma Gloria D.O. PROCEDURE: XR CERVICAL SPINE 2V OR 3V INDICATIONS: neck pain, had shoulder pain last visit, headache TECHNIQUE: 3 view(s) of the cervical spine were acquired. COMPARISON: None. FINDINGS: Bones: No fractures or dislocations to the C7 level. The lateral masses of C1 appear intact on the odontoid view. No suspicious bony lesions. Soft tissues: No prevertebral soft tissue swelling. IMPRESSION: No acute radiographic findings. If there is continued pain, followup exam or additional imaging such as MRI or CT could be performed for further assessment. Dictated by: Keesha Kate M.D. on 12/06/2018 at 8:33 Approved by: Keesha Kate M.D. on 12/06/2018 at 8:34 [facility] Narrative Medical decision making narrative: Discussed with patient plan for C-spine x-ray as she has possible traumatic injury or degenerative changes although she felt better after seeing the chiropractor my suspicion is more that she has some muscle tension post adjustment. Migraine is her typical pattern except for neck discomfort. Patient is on coumadin for 'blood clots' she has not had her INR checked in a month or two. Plan to check today, she has been taking her medication. Discussed what has been helpful for her migraines in the past and she states vicodin. Will try a dose of oral vicodin along with zofran for her nausea and then re-evaluate. Patient also requesting referral for pcp. Patient INR is 1.6, discussed to take extra dose today and can return for recheck in next 2 days. She has not taken her coumadin today. Also states she's been eating a lot of potatoes. Patient states she has plenty of her medications plus refills. We discussed her PCP is on [facility] but they have trouble with transportation, she can return here or she can go to outpatient lab, given a prescription with results to Dr. Singleton and she can follow up results via phone with recommendations on her medication dosing. Patient is feeling more comfortable and states medications are kicking in. She feels comfortable to return home when offered vs. watching longer for resolution of symptoms. All questions answered. Patient ambulated from department without issue. Discharge Plan Departure Patient Disposition: Home Clinical Impression: Cervical paraspinous muscle spasm Migraine Qualifiers: Migraine type: unspecified Status migrainosus presence: without status migrainosus Intractability: not intractable Qualified Code(s): G43.909 - Migraine, unspecified, not intractable, without status migrainosus Discharge Date/Time: 12/06/18 08:53 Interventions: ED Discharge Assessment Last Done: 12/06/18 08:52 Instructions: DI for Migraine Activity Restrictions/Additional Instructions: Follow up with primary care for your medication and regular INR checks. Call [phone] for the health director of career resources to assist you in findings a physician. Continue home medications as prescribed. Your INR is 1.6 today, take an extra dose of coumadin today and get recheck in the next 2 days. You may use heat to the affected area 4 times daily. Return to the ER for fevers greater than 100.4F, rapidlyl worsening headaches, new vision changes, speech difficulties, weakness, numbness, persistent vomiting, new chest pain or shortness of breath, incontinence or other new or concerning symptoms. Prescriptions: No Action lisinopril 2.5 mg tablet 2.5 mg PO DAILY RF: 0 aspirin 81 mg Tablet,Chewable 81 mg PO DAILY RF: 0 warfarin 7.5 mg Tablet 7.5 mg PO DAILY RF: 0 metoprolol succinate 25 mg Tablet Extended Release 24 Hr 12.5 mg PO DAILY RF: 0 methocarbamol 500 mg tablet 500 mg PO DAILY PRN (Reason: muscle spasm) Qty: 10 RF: 0 hydrocodone-acetaminophen 5-325 mg tablet 1 tab PO Q6-8H PRN (Reason: pain) Qty: 10 RF: 0 erenumab-aooe [Aimovig Autoinjector] 70 mg/mL auto-injector 70 mg SUBCUT QMONTH Qty: 1 RF: 11 Referrals: Anisha Singleton MD [Primary Care Provider] - Stand Alone Forms: Work Release Note
[2018-12-06 08:21] LABS: INR 1.6 (0.9-1.3); Prothrombin Time 18.4 SECONDS (10.1-12.7)
[2018-12-06 08:52] VITALS: BP 107/51; PULSE 67; RESP 20; O2SAT 98
== END 2018-12-06 08:53 | disposition home or self-care (01) ==
PROVIDERS: Emergency Provider Emergency Medicine; PCP Family Medicine
DX: M62.838 Other muscle spasm (principal); G43.909 Migraine, unspecified, not intractable, without status migrainosus; Z79.01 Long term (current) use of anticoagulants
CPT/HCPCS: 36415; 72040; 85610; 99282; 99284

== ENCOUNTER → 2018-12-09 13:33 | Outpatient (CLI) | payer OTHER, SELFPAY ==
[2018-12-09 14:09] LABS: INR 2.6 (0.9-1.3)
== END ==
PROVIDERS: PCP Family Medicine; Visit Provider Emergency Medicine
DX: Z79.01 Long term (current) use of anticoagulants (principal)
CPT/HCPCS: 36415; 85610

== ENCOUNTER → 2019-01-01 13:29 | Outpatient (CLI) | payer OTHER, SELFPAY ==
[2019-01-01 14:37] LABS: INR 1.8 (0.9-1.3); Prothrombin Time 20.4 SECONDS (10.1-12.7)
== END ==
PROVIDERS: PCP Family Medicine; Visit Provider Family Medicine
DX: Z79.01 Long term (current) use of anticoagulants (principal)
CPT/HCPCS: 36415; 85610

== ENCOUNTER 2019-01-02 04:22 | Emergency (ER) | payer OTHER, MEDICAID, SELFPAY ==
[2019-01-02 04:41] VITALS: BP 130/75; PULSE 76; RESP 20; TEMP 36.3; O2SAT 99
--- NOTE | 2019-01-02 04:50 | DI.CT.S_ITS ---
PROCEDURE: CT HEAD/BRAIN WO CON INDICATIONS: sudden onset headache, woke from sleep, dizzy, on coumadin TECHNIQUE: Noncontrast 4.5 mm thick angled axial sections acquired from the foramen magnum to the vertex, with coronal and sagittal reformats. For radiation dose reduction, the following was used: automated exposure control, adjustment of mA and/or kV according to patient size. COMPARISON: None. FINDINGS: Image quality: Excellent. CSF spaces: Basal cisterns are patent. No extra-axial fluid collections. Ventricles are normal in size and shape. Brain: No midline shift. No intracranial masses or hemorrhage. Raza-white matter interface is normal. Skull and face: Calvarium and visualized facial bones are intact, without suspicious lesions. Sinuses: Visualized sinuses and mastoids are clear. IMPRESSION: CT head without acute intracranial abnormalities. No significant discrepancy with the crepe laminator operator radiology preliminary report. Dictated by: Román Vanessa M.D. on 01/02/2019 at 7:29 Approved by: Román Vanessa M.D. on 01/02/2019 at 7:37
[2019-01-02] MEDS: KETOROLAC 60 MG/2 ML VIAL 15 MG IV (05:00)
[2019-01-02] MEDS: SODIUM CHLORIDE 0.9% 1,000 ML 1000 ML IV (05:00)
[2019-01-02 05:02] VITALS: RESP 18; O2SAT 97
--- NOTE | 2019-01-02 05:05 | ED_ITS ---
HPI - Headache General Chief Complaint: Headache Stated Complaint: states migraine for four hours Time Seen by Provider: 01/02/19 04:25 Source: patient and family Mode of arrival: ambulatory Limitations: no limitations History of Present Illness HPI Narrative: 28-year-old female nonsmoker with history of a clotting disorder on anticoagulant presents with a severe left-sided headache which woke her from sleep. It is a slightly atypical presentation and that it came on suddenly and is associated with dizziness, though she does state her symptoms are worse with bright lights and loud noises and improved with rest and a dark room. She denies any blurred or double vision nor any focal neurologic findings such as numbness, weakness or tingling. MD Complaint: headache Onset (ago): hour(s) Onset description: sudden Location: left Severity: moderate Quality: aching, throbbing and different than previous headaches Relieving factors: nothing Exacerbating factors: none Associated symptoms: nausea, photophobia and sensitivity to sound Treatments prior to arrival: none Related Data Home Medications Medication Instructions Recorded Confirmed aspirin 81 mg PO DAILY 10/01/17 10/19/18 lisinopril 2.5 mg PO DAILY 10/01/17 10/19/18 metoprolol succinate 12.5 mg PO DAILY 10/01/17 10/19/18 warfarin 7.5 mg PO DAILY 10/01/17 10/19/18 Previous Rx's Medication Instructions Recorded hydrocodone 5 mg-acetaminophen 325 1 tab PO Q6-8H PRN #10 tab 10/04/17 mg tablet erenumab-aooe 70 mg/mL 70 mg SUBCUT QMONTH #1 ml 02/08/18 subcutaneous auto-injector methocarbamol 500 mg PO DAILY PRN #10 tab 11/27/18 Allergies Allergy/AdvReac Type Severity Reaction Status Date / Time heparin Allergy HIT Verified 12/06/18 07:52 cyclobenzaprine AdvReac angry Verified 12/06/18 07:52 [facility] Review of Systems Constitutional Constitutional: Denies chills, Denies fatigue, Denies fever(s), Denies frequent falls, Reports headache(s), Denies lethargy and Denies weakness Eyes Eyes: Denies change in vision, Denies eye discharge, Denies irritation and Denies loss of vision ENT Ears, Nose, Mouth, and Throat: Denies change in voice, Denies dizziness, Reports headache(s), Denies neck pain, Denies sore throat and Denies throat swelling Cardiovascular Cardiovascular: Denies chest pain, Denies irregular heart rhythm, Denies lightheadedness, Denies palpitations, Denies dyspnea, Denies dyspnea on exertion and Denies orthopnea Respiratory Respiratory: Denies cough, Denies dyspnea, Denies dyspnea on exertion and Denies wheezing Gastrointestinal Gastrointestinal: Denies abdominal pain, Denies change in bowel habits, Denies diarrhea, Denies nausea and Denies vomiting Genitourinary Genitourinary: Denies hematuria, Denies flank pain, Denies urinary incontinence and Denies urinary urgency Musculoskeletal Musculoskeletal: Denies back pain, Denies muscle weakness, Denies neck pain, Denies numbness and Denies tingling Integumentary/Breasts Skin/Breast: Denies pruritus, Denies erythema, Denies rash and Denies wounds Neurologic Neurologic: Denies behavioral changes, Denies confusion, Denies dizziness, Denies frequent falls, Reports headache(s), Denies loss of vision, Denies numbness, Denies tingling and Denies weakness Psychiatric Psychiatric: Denies anxiety, Denies behavioral changes, Denies confusion, Denies depression, Denies homicidal ideation and Denies suicidal ideation Endocrine Endocrine: Denies fatigue, Denies flushing and Denies palpitations Hematologic/Lymphatic Hematologic/Lymphatic: Denies easy bruising Allergic/Immunologic Allergic/Immunologic: Denies urticaria, Denies throat swelling and Denies wheezing [facility] Medical History Carpal tunnel syndrome (Acute) Hyperglycemia (Acute) Migraine headache (Acute) Myocardial infarct (Acute) Polycystic ovary syndrome (Acute) Social History (Updated 12/06/18 @ 07:59 by Emma Gloria DO) Smoking Status: Never smoker alcohol intake: current substance use type: marijuana Social History Smoking Status: Never smoker alcohol intake: current substance use type: marijuana Exam Narrative Exam Narrative: GENERAL: [28] year old patient appears stated age. Morbidly obese well-developed patient, in mild distress, rubbing her forehead, sitting in a dark room, holding an emesis bag HEAD: Atraumatic. Normocephalic. EYES: Pupils equal round and reactive. Extraocular motions intact. No scleral icterus. No injection or drainage. ENT: Nose without bleeding, purulent drainage. Throat without erythema, tonsillar hypertrophy or exudate. Airway patent. NECK: Trachea midline. Non tender CARDIOVASCULAR: Regular rate and rhythm without murmurs, gallops, or rubs. RESPIRATORY: Clear to auscultation. Breath sounds equal bilaterally. No wheezes, rales, or rhonchi. GASTROINTESTINAL: Abdomen soft, non-tender, nondistended. EXTREMITIES: No edema or joint tenderness. BACK: Nontender without deformity or crepitance. No flank tenderness. NEURO: AOx3. SKIN: No rash or erythema of visible areas NIH Stroke Scale 1a. LOC: Patient is alert and keenly responsive (0) 1b. LOC Questions: Patient answers both LOC questions accurately (0) 1c. LOC Commands: Patient performs both tasks correctly (0) 2. Best Gaze: Normal (0) 3. Visual: No visual loss (0) 4. Facial palsy: Normal symmetrical movements (0) 5. Motor arm: No drift (0) 6. Motor leg: No drift (0) 7. Limb ataxia: Absent (0) 8. Sensory: Normal (0) 9. Best language: No aphasia; normal (0) 10. Dysarthria: Normal (0) 11. Extinction and inattention: No abnormality (0) NIHSS: 0 Initial Vital Signs Initial Vital Signs: Vital Signs Temperature 97.4 F L 01/02/19 04:41 Pulse Rate 76 01/02/19 04:41 Respiratory Rate 20 01/02/19 04:41 Blood Pressure 130/75 01/02/19 04:41 Pulse Oximetry 99 01/02/19 04:41 Course Orders Ordered: Discontinued Medications Sodium Chloride (Normal Saline 0.9%) 1,000 mls @ 1,000 mls/hr IV BOLUS ONE Stop: 01/02/19 05:47 Last Infusion: 01/02/19 05:48 Dose: 0 mls/hr Documented by: LISAFARTi Admin: 01/02/19 05:00 Dose: 1,000 mls/hr Documented by: KEL Ketorolac Tromethamine (Toradol) 15 mg IV NOW ONE Stop: 01/02/19 04:49 Last Admin: 01/02/19 05:00 Dose: 15 mg Documented by: APAFFIE Vital Signs Vital signs: Vital Signs - 8 hr 01/02/19 04:41 01/02/19 05:02 Temperature 97.4 F L Pulse Rate 76 Respiratory Rate 20 18 Blood Pressure 130/75 Pulse Oximetry 99 97 MDM - Headache Lab Data Result diagrams: 01/02/19 05:00 01/02/19 05:00 Labs: Lab Results 01/02/19 01/02/19 01/02/19 Range/Units 05:00 05:00 05:00 WBC 8.0 (4.5-11.0) X10^3/uL RBC 5.33 H (4.0-5.2) X10^6/uL Hgb 15.0 (12.0-16.0) g/dL Hct 44.7 (36-46) % MCV 83.8 (80-100) fL MCH 28.1 (26-34) PG MCHC 33.5 (30-36) % RDW 13.9 (11.6-14.8) % Plt Count 241 (150-400) X10^3/uL Neut % (Auto) 70.8 (50-75) % Lymph % (Auto) 19.6 L (25-40) % Dewitt % (Auto) 8.1 (3-14) % Eos % (Auto) 1.0 L (2-4) % Baso % (Auto) 0.5 (0-2) % Neut # (Auto) 5600 (1328-9729) /uL Lymph # (Auto) 1600 (8626-0199) /uL Dewitt # (Auto) 600 (0-900) /uL Eos # (Auto) 100 (0-450) /uL Baso # (Auto) 0 (0-100) /uL PT 22.0 H (10.1-12.7) SECONDS INR 1.9 H (0.9-1.3) Sodium 140 (137-145) mmol/L Potassium 4.6 (3.4-5.1) mmol/L Chloride 102 (98-107) mmol/L Carbon Dioxide 28 (22-32) mmol/L BUN 13 (7-17) mg/dL Creatinine 0.60 (0.52-1.04) mg/dL Estimated GFR > 60.0 (>60) mL/min BUN/Creatinine Ratio 21.7 (6-22) Glucose 144 H (70-100) mg/dL Calcium 9.0 (8.4-10.2) mg/dL Discharge Plan Departure Patient Disposition: Home Clinical Impression: Migraine Discharge Date/Time: 01/02/19 06:00 Instructions: DI for Migraine Activity Restrictions/Additional Instructions: *You have been diagnosed with [acute migraine headache] *What to do: * continue to take medications as directed *Follow up with your primary care provider in 2-3 days, call for an appointment. Let them know you were seen in the Emergency Department and that we ask that you be seen in follow up *Return to ER if you should have any new, worsening or concerning symptoms Prescriptions: No Action lisinopril 2.5 mg tablet 2.5 mg PO DAILY RF: 0 aspirin 81 mg Tablet,Chewable 81 mg PO DAILY RF: 0 warfarin 7.5 mg Tablet 7.5 mg PO DAILY RF: 0 metoprolol succinate 25 mg Tablet Extended Release 24 Hr 12.5 mg PO DAILY RF: 0 methocarbamol 500 mg tablet 500 mg PO DAILY PRN (Reason: muscle spasm) Qty: 10 RF: 0 hydrocodone-acetaminophen 5-325 mg tablet 1 tab PO Q6-8H PRN (Reason: pain) Qty: 10 RF: 0 erenumab-aooe [Aimovig Autoinjector] 70 mg/mL auto-injector 70 mg SUBCUT QMONTH Qty: 1 RF: 11 Referrals: Anisha Singleton MD [Primary Care Provider] -
[2019-01-02 05:16] LABS: Add Manual Diff / Slide Review NO; Basophils Absolute Auto 0 /uL (0-100); Basophils Percent Auto 0.5 % (0-2); Eosinophils Absolute Auto 100 /uL (0-450); Hematocrit 44.7 % (36-46); Lymphocytes Absolute Auto 1600 /uL (1100-4500); Lymphocytes Percent Auto 19.6 % (25-40); Mean Corpuscular HGB Conc 33.5 % (30-36); Mean Corpuscular Hemoglobin 28.1 PG (26-34); Mean Corpuscular Volume 83.8 fL (80-100); Monocytes Absolute Auto 600 /uL (0-900); Monocytes Percent Auto 8.1 % (3-14); Neutrophils Absolute Auto 5600 /uL (1500-7000); Neutrophils Percent Auto 70.8 % (50-75); Platelet Count 241 X10^3/uL (150-400); Red Blood Cell Count 5.33 X10^6/uL (4.0-5.2); Red Cell Distribution Width 13.9 % (11.6-14.8)
[2019-01-02 05:20] LABS: INR 1.9 (0.9-1.3)
[2019-01-02 05:24] LABS: BUN Creatinine Ratio 21.7 (6-22); Blood Urea Nitrogen 13 mg/dL (7-17); Carbon Dioxide 28 mmol/L (22-32); Chloride 102 mmol/L (98-107); Estimated Glomerular Filt Rate > 60.0 mL/min (>60); Glucose 144 mg/dL (70-100); HEMOLYSIS < 15 (0-50); Potassium 4.6 mmol/L (3.4-5.1); Sodium 140 mmol/L (137-145)
[2019-01-02 06:00] VITALS: BP 129/74; PULSE 79; RESP 18; O2SAT 99
== END 2019-01-02 06:00 | disposition home or self-care (01) ==
PROVIDERS: Emergency Provider Emergency Medicine; PCP Family Medicine
DX: G43.909 Migraine, unspecified, not intractable, without status migrainosus (principal); Z79.01 Long term (current) use of anticoagulants
CPT/HCPCS: 36591; 70450; 80048; 85025; 85610; 96361; 96374; 99283; 99284; J1885

== ENCOUNTER → 2019-04-03 07:45 | Outpatient (CLI) | payer OTHER, MEDICAID, SELFPAY ==
[2019-04-03 09:10] LABS: INR 3.9 (0.9-1.3); Prothrombin Time 45.9 SECONDS (10.1-12.7)
[2019-04-03 09:27] LABS: Alanine Aminotransferase 21 IU/L (<35); Albumin 4.6 g/dL (3.5-5.0); Albumin Globulin Ratio 1.5 (1.0-2.8); Alkaline Phosphatase 85 U/L (38-126); Aspartate Aminotransferase 30 IU/L (14-36); Bilirubin Total 0.5 mg/dL (0.2-1.3); Blood Urea Nitrogen 9 mg/dL (7-17); Calcium 8.9 mg/dL (8.4-10.2); Carbon Dioxide 27 mmol/L (22-32); Chloride 103 mmol/L (98-107); Cholesterol 150 mg/dL (140-199); Estimated Glomerular Filt Rate > 60.0 mL/min (>60); Globulin 3.1 g/dL (1.7-4.1); Glucose 126 mg/dL (70-100); HDL Cholesterol 37 mg/dL (40-60); HEMOLYSIS 16 (0-50); LDL Cholesterol Calculated 78 mg/dL (<100); Potassium 4.2 mmol/L (3.4-5.1); Sodium 140 mmol/L (137-145); Total Protein 7.7 g/dL (6.3-8.2); Triglycerides 174 mg/dL (35-150)
[2019-04-03 09:54] LABS: Thyroid Stimulating Hormone 3.71 uIU/mL (0.47-4.68)
== END ==
PROVIDERS: PCP Family Medicine; Visit Provider Physician Assistant
DX: I25.10 Atherosclerotic heart disease of native coronary artery without angina pectoris (principal); L68.0 Hirsutism; R73.09 Other abnormal glucose; I21.3 ST elevation (STEMI) myocardial infarction of unspecified site
CPT/HCPCS: 36415; 80053; 80061; 83036; 84443; 85610

== ENCOUNTER → 2019-06-05 14:33 | Outpatient (CLI) | payer OTHER, MEDICAID, SELFPAY ==
--- NOTE | 2019-06-05 16:17 | DIET.PN ---
Dietary Progress Note Assessment: HT: WT: UBW: BMI: Labs: MNA: Ramon: Nutrition Diagnosis: Interventions: Diet Order: EER: Monitoring/Evaluations:
--- NOTE | 2019-06-05 16:18 | DIET.PN ---
Nutrition Initial Assessment:? ASSESS:???Ms Macario is a 28 yof referred for pre-DM w/ PCOS. She reports strong family hx of diabetes and heart disease. Her father from pancreatic cancer and uncontrolled DM. She reports challenges in healthy eating and losing weight related to her living situation and work schedule. She works 3 jobs with split shifts and attends college one day per week. 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 She reports having access to a refrigerator and microwave and recently purchased a crockpot and electric burner to aid in healthier meal preparation. She was just taken off warfarin and placed on eliquis due to a heart attack she had in July 2017. She is motivated to make some lifestyle choices to improve her health. ? LABS: Per pt report:? A1c: 6.0 Gluc: 126 Chol: 150 LDL: 50 HDL: 37 Tr ? MEDS:?? n/a ? DIET: Per 24-hour recall:? Regularly eats on the go bc of work/school schedule and living situtation. ? Weight: 211 lb Ht:? 64 in BMI: 36.2 ? Exercise:? reports 20,000 steps/day walking to and from work NUTRITION DX 1. Altered Nutrition related labs related to impaired glucose metabolism, lack of previous exposure to accurate nutrition information as evidenced by pt report, dx of pre-diabetes/PCOS, previous diet high in refined carbohydrates, lack of physical activity.? INTERVENTION(s): 1. Discussed pathophysiology of diabetes/hyperglycemia and impact of nutrition/diet on blood sugar control.? 2. Discussed the effect of carbohydrates/protein/fat on blood sugar control.? Stressed importance of consistent carbohydrate intake at each meal and provided instructions for recommended servings/portions of carbohydrates/protein per meal. Provided pt with educational material. 3. Reviewed carbohydrate counting and measuring carbohydrate content via serving sizes and reading nutrition labels.? Provided handouts.?? 4. Discussed the difference between simple versus complex carbohydrates and the effect of fiber on blood sugar control.? Discussed various methods to increase fiber content in diet. 5. Stressed importance of meal timing and not going >4-5 hours between meals. Encouraged adding protein to snacks to support glucose control and prevent hunger. Discussed various snack options. 6. Discussed importance of food preparation to encourage healthy eating, portion control, and prevent hunger/over snacking. Compiled a list of grab and go foods for breakfast and snack ideas. 7. Discussed healthy weight loss goals of 1-2lbs per week through diet and exercise.? Pt agreeable to keeping a daily food record including portions. Goals: 1. Pt would like to lose 10 lbs (~5%) body weight in the next 1-2 months through dietary changes. MONITOR/EVALUATE: Anticipate good compliance.? Will follow up with weight, labs, and food record.
== END ==
PROVIDERS: PCP Family Medicine; Referring Provider Family Medicine; Visit Provider Family Medicine
DX: R73.03 Prediabetes (principal); E28.2 Polycystic ovarian syndrome; E66.9 Obesity, unspecified; Z68.36 Body mass index [BMI] 36.0-36.9, adult; Z71.3 Dietary counseling and surveillance
CPT/HCPCS: 97802

== ENCOUNTER → 2019-07-08 14:47 | Outpatient (CLI) | payer OTHER, MEDICAID, SELFPAY ==
[2019-07-08 20:56] LABS: Hepatitis B Surface Antigen NEGATIVE s/c (NEGATIVE)
[2019-07-08 21:08] LABS: HIV 1 & 2 Ab/Ag 4th Gen Combo NEGATIVE (NEGATIVE); Hep C Virus Ab w/Reflex Quant NEGATIVE s/c (NEGATIVE)
== END ==
PROVIDERS: PCP Family Medicine; Referring Provider Family Medicine; Visit Provider Family Medicine
DX: Z11.3 Encounter for screening for infections with a predominantly sexual mode of transmission (principal)
CPT/HCPCS: 36415; 86592; 86803; 87340; 87389

== ENCOUNTER → 2020-10-23 08:53 | Outpatient (CLI) | payer OTHER, MEDICAID, SELFPAY ==
[2020-10-23 10:00] LABS: Add Manual Diff / Slide Review NO; Basophils Absolute Auto 0 /uL (0-100); Basophils Percent Auto 0.5 % (0-2); Eosinophils Absolute Auto 100 /uL (0-450); Eosinophils Percent Auto 1.3 % (2-4); Hematocrit 46.3 % (36-46); Hemoglobin 15.9 g/dL (12.0-16.0); Lymphocytes Absolute Auto 2300 /uL (1100-4500); Mean Corpuscular HGB Conc 34.2 % (30-36); Mean Corpuscular Hemoglobin 29.1 PG (26-34); Monocytes Absolute Auto 700 /uL (0-900); Monocytes Percent Auto 7.3 % (3-14); Neutrophils Absolute Auto 6000 /uL (1500-7000); Neutrophils Percent Auto 65.9 % (50-75); Platelet Count 232 X10^3/uL (150-400); Red Blood Cell Count 5.45 X10^6/uL (4.0-5.2); Red Cell Distribution Width 12.3 % (11.6-14.8); White Blood Cell Count 9.1 X10^3/uL (4.5-11.0)
[2020-10-23 10:04] LABS: Hemoglobin A1C% w Est Avg Glu > 14.0 % (4.0-6.0)
[2020-10-23 10:28] LABS: Alanine Aminotransferase 36 IU/L (<35); Albumin 4.2 g/dL (3.5-5.0); Albumin Globulin Ratio 1.5 (1.0-2.8); Alkaline Phosphatase 130 U/L (38-126); Aspartate Aminotransferase 28 IU/L (14-36); BUN Creatinine Ratio 16.7 (6-22); Bilirubin Total 0.4 mg/dL (0.2-1.3); Blood Urea Nitrogen 8 mg/dL (7-17); Calcium 9.1 mg/dL (8.4-10.2); Carbon Dioxide 24 mmol/L (22-32); Chloride 101 mmol/L (98-107); Cholesterol 154 mg/dL (140-199); Estimated Glomerular Filt Rate > 60.0 mL/min (>60); Globulin 2.8 g/dL (1.7-4.1); Glucose 382 mg/dL (70-100); HDL Cholesterol 42 mg/dL (40-60); HEMOLYSIS < 15 (0-50); LDL Cholesterol Calculated 70 mg/dL (<100); Potassium 4.7 mmol/L (3.4-5.1); Sodium 135 mmol/L (137-145); Triglycerides 209 mg/dL (35-150)
[2020-10-23 10:49] LABS: Thyroid Stimulating Hormone 2.75 uIU/mL (0.47-4.68)
[2020-10-23 14:06] LABS: Creatinine Urine Random 63.1 mg/dL
[2020-10-23 14:10] LABS: Microalbumi Creatinin Ratio Ur 22.1 ug/mg CR (<30); Microalbumin Urine Random 1.4 mg/dL (0-1.6)
== END ==
PROVIDERS: PCP Family Medicine; Referring Provider Family Medicine; Visit Provider Family Medicine
DX: D68.59 Other primary thrombophilia (principal); I10 Essential (primary) hypertension; I21.3 ST elevation (STEMI) myocardial infarction of unspecified site; R73.03 Prediabetes
CPT/HCPCS: 36415; 80053; 80061; 82043; 82570; 83036; 84443; 85025

== ENCOUNTER 2020-12-14 08:52 | Emergency (ER) | payer OTHER, MEDICAID, SELFPAY ==
[2020-12-14 09:34] VITALS: BP 148/98; PULSE 99; RESP 14; TEMP 36.7; O2SAT 99
[2020-12-14 09:58] LABS: Bacteria Urine None Seen
[2020-12-14 10:04] LABS: Appearance Urine UA CLOUDY; Bilirubin Urine UA NEGATIVE (NEGATIVE); Color Urine UA RED; Glucose Urine UA 2+ g/dL (Negative); Ketones Urine UA NEGATIVE (NEGATIVE); Leukocyte Esterase Urine UA 1+ (NEGATIVE); Nitrite Urine UA POSITIVE (Negative); Occult Blood Urine UA 3+ (Negative); Protein Urine UA 2+ (Negative); Specific Gravity Urine UA 1.025 (1.000-1.035); Urobilinogen Urine UA 0.2 E.U./dL (0.2)
[2020-12-14 10:11] LABS: Amorphous Sediment Urine 2+; Culture Indicated Urine Specimen Cultured; RBC Urine 10-30/HPF (0-5/HPF); WBC Urine 5-10/HPF (0-5/HPF)
--- NOTE | 2020-12-14 10:46 | ED.GENADULT ---
HPI - General Adult General Chief complaint: Urogenital-Female Stated complaint: pain in kidney area/diabetes Time Seen by Provider: 12/14/20 10:41 Source: patient Mode of arrival: Ambulatory Limitations: no limitations History of Present Illness HPI narrative: 30-year-old female who is here for evaluation right-sided flank pain that is on and off and also urinary frequency. This been going on for the past day or so. No vomiting. No fevers. No abdominal pain. States that the flank pain comes and goes. She is not currently having any symptoms. She has had frequent urinary tract infections in the past. Related Data Previous Rx's Medication Instructions Recorded erenumab-aooe 70 mg/mL 70 mg SUBCUT QMONTH #1 ml 02/08/18 subcutaneous auto-injector (Aimovig Autoinjector) atorvastatin 20 mg tablet 20 mg PO BEDTIME #14 tab 10/26/20 empagliflozin 10 mg tablet 10 mg PO QAM #30 tab 11/11/20 (Jardiance) GLUCOSE TEST STRIPS #1 ea 11/20/20 GLUCOSE TESTING LANCETS #1 ea 11/20/20 Continuos Glucose Monitoring Device #1 ea 11/24/20 BLOOD GLUCOSE MONITOR DEXCOM6 #1 ea 11/26/20 DEXCOM 6 Sensor #1 ea 11/26/20 DEXCOM 6 Transmitter #1 ea 11/26/20 apixaban 5 mg tablet (Eliquis) See Rx Instructions .ROUTE 12/07/20 .COMPLEX #28 tab lisinopril 2.5 mg tablet See Rx Instructions .ROUTE 12/07/20 .COMPLEX #30 tab metoprolol succinate 25 mg See Rx Instructions .ROUTE 12/07/20 tablet,extended release 24 hr .COMPLEX #90 tab nitrofurantoin 100 mg PO Q12H 5 Days #10 cap 12/14/20 monohydrate/macrocrystals 100 mg capsule (Macrobid) Allergies Allergy/AdvReac Type Severity Reaction Status Date / Time latex Allergy Severe Rash Verified 12/14/20 09:39 heparin Allergy HIT Verified 12/14/20 09:39 metformin AdvReac Severe causes Verified 12/14/20 09:39 migraines cyclobenzaprine AdvReac angry Verified 12/14/20 09:39 [From Flexeril] Review of Systems Constitutional Comments: No fevers Cardiovascular Cardiovascular: Reports system reviewed and no additional complaints, except as documented Respiratory Respiratory: Reports system reviewed and no additional complaints, except as documented Gastrointestinal Gastrointestinal: Reports as per HPI Genitourinary Genitourinary: Reports as per HPI Musculoskeletal Comments: Flank pain Integumentary/Breasts Skin/Breast: Reports system reviewed and no additional complaints, except as documented Neurologic Neurologic: Reports system reviewed and no additional complaints, except as documented Hematologic/Lymphatic On Anticoagulants: Yes Allergic/Immunologic Allergic/Immunologic: Reports system reviewed and no additional complaints, except as documented Patient History Medical History Abnormal Pap smear of cervix Asthma Carpal tunnel syndrome Chicken pox Cubital tunnel syndrome DM type 2 (diabetes mellitus, type 2) Essential hypertension History of developmental delay Hyperglycemia Migraine headache Myocardial infarct Polycystic ovary syndrome (~2007) Post traumatic stress disorder (PTSD) (~2017) Surgical History Anesthesia History of blood clots (~07/2017) Status post surgical removal of both fallopian tubes (~07/2018) Family History Father Cancer Diabetes mellitus History of heart disease Hypertension Hyperlipidemia Stroke Mother Mental health problem Brother Murder Mental health problem Sister Mental health problem Grandfather Pancreatic cancer Grandmother Mental health problem Grandfather Diabetes mellitus Grandmother Cancer Diabetes mellitus Hypertension Hyperlipidemia Social History Smoking Status: Never smoker alcohol intake: current substance use type: marijuana Smoking Status: Never smoker alcohol intake frequency: 0-2 drinks per day Substance Use Type: does not use Exam Initial Vital Signs Initial Vital Signs: Vital Signs Temperature 98.1 F 12/14/20 09:34 Pulse Rate 99 H 12/14/20 09:34 Respiratory Rate 14 12/14/20 09:34 Blood Pressure 148/98 H 12/14/20 09:34 Pulse Oximetry 99 12/14/20 09:34 HENMT Head: normal to inspection Resp Effort & Inspection: normal respiratory effort Cardio Rate: regular rate GI Palpation: soft and No tender Back/Spine/Pelvis Back: No CVA tenderness Skin General: no rashes or lesions noted Neuro General: patient alert, patient awake and moves all extremities Extrem General: normal to inspection and capillary refill normal Psych Appearance: grossly normal and well kempt Course Orders Ordered: ED Orders 12/14/20 09:46 Urinalysis and Microscopic Stat Urine Culture Stat Vital Signs Vital signs: Vital Signs - 8 hr 12/14/20 09:34 Temperature 98.1 F Pulse Rate 99 H Respiratory Rate 14 Blood Pressure 148/98 H Pulse Oximetry 99 Medical Decision Making Lab Data Labs: Lab Results 12/14/20 Range/Units 09:46 Urine Color Red Urine Appearance Cloudy Urine pH 5.0 (4.5-8.0) Ur Specific Gill 1.025 (1.000-1.035) Urine Protein 2+ H (Negative) Urine Glucose (UA) 2+ H (Negative) g/dL Urine Ketones Negative (NEGATIVE) Urine Occult Blood 3+ H (Negative) Urine Nitrate Positive H (Negative) Urine Bilirubin Negative (NEGATIVE) Urine Urobilinogen 0.2 (0.2) E.U./dL Ur Leukocyte Esterase 1+ H (NEGATIVE) Urine RBC 10-30/hpf H (0-5/HPF) Urine WBC 5-10/hpf H (0-5/HPF) Amorphous Sediment 2+ Urine Bacteria None seen (None) Ur Culture Indicated? Specimen cultured Point of Care Testing Glucose POC 186 Point of care testing: Point of Care Testing Glucose POC 186 MDM Narrative Medical decision making narrative: Urine culture was pending at the time of discharge. She is having dysuria and has a nitrite positive urine. Will start on antibiotics. I have low suspicion for pyelonephritis given her exam today. Low suspicion for renal stone. Afebrile. Tolerating oral intake. Will send a prescription of antibiotics to the pharmacy of her choice. She was given return precautions and follow-up instructions. She expressed understanding and agreement. Discharge Plan Departure Patient Disposition: Home Clinical Impression: Urinary tract infection Instructions: DI for Urinary Tract Infection (UTI) Activity Restrictions/Additional Instructions: A prescription for antibiotics was transmitted to [facility]. Please start taking them today as directed. Continue the rest of your medications as directed. Return to the emergency department for any new or worsening symptoms Prescriptions: New nitrofurantoin monohyd/m-cryst [Macrobid] 100 mg capsule 100 mg PO Q12H 5 Days Qty: 10 RF: 0 No Action Jardiance 10 mg tablet 10 mg PO QAM Qty: 30 RF: 2 (DME) GLUCOSE TEST STRIPS See Rx Instructions .Route .MEDSUPPLY Qty: 1 RF: 12 (DME) GLUCOSE TESTING LANCETS See Rx Instructions .Route .MEDSUPPLY Qty: 1 RF: 12 atorvastatin 20 mg tablet 20 mg PO BEDTIME Qty: 14 RF: 0 (DME) Continuos Glucose Monitoring Device See Rx Instructions .Route .MEDSUPPLY Qty: 1 RF: 0 (DME) BLOOD GLUCOSE MONITOR DEXCOM6 See Rx Instructions .Route .MEDSUPPLY Qty: 1 RF: 0 (DME) DEXCOM 6 Sensor See Rx Instructions .Route .MEDSUPPLY Qty: 1 RF: 0 (DME) DEXCOM 6 Transmitter See Rx Instructions .Route .MEDSUPPLY Qty: 1 RF: 0 Eliquis 5 mg tablet See Rx Instructions .ROUTE .COMPLEX Qty: 28 RF: 2 lisinopril 2.5 mg tablet See Rx Instructions .ROUTE .COMPLEX Qty: 30 RF: 1 metoprolol succinate 25 mg tablet extended release 24 hr See Rx Instructions .ROUTE .COMPLEX Qty: 90 RF: 1 erenumab-aooe [Aimovig Autoinjector] 70 mg/mL auto-injector 70 mg SUBCUT QMONTH Qty: 1 RF: 11 Referrals: Susie Burgos MD [Primary Care Provider] -
== END 2020-12-14 11:07 | disposition home or self-care (01) ==
PROVIDERS: Emergency Provider Emergency Medicine; PCP Family Medicine
DX: N39.0 Urinary tract infection, site not specified (principal)
CPT/HCPCS: 81001; 82962; 87077; 87086; 87186; 99282

== ENCOUNTER → 2021-02-01 07:44 | Outpatient (CLI) | payer OTHER, MEDICAID, SELFPAY ==
[2021-02-01 09:04] LABS: Hemoglobin A1C% w Est Avg Glu 7.5 % (4.0-6.0)
== END ==
PROVIDERS: PCP Family Medicine; Referring Provider Family Medicine; Visit Provider Family Medicine
DX: E11.9 Type 2 diabetes mellitus without complications (principal)
CPT/HCPCS: 36415; 83036

== ENCOUNTER → 2021-05-05 16:27 | Outpatient (CLI) | payer OTHER, MEDICAID, SELFPAY ==
[2021-05-05 18:01] LABS: Hemoglobin A1C% w Est Avg Glu 6.3 % (4.0-6.0)
== END ==
PROVIDERS: PCP Family Medicine; Referring Provider Family Medicine; Visit Provider Family Medicine
DX: E11.9 Type 2 diabetes mellitus without complications (principal)
CPT/HCPCS: 36415; 83036

== ENCOUNTER → 2021-06-07 12:33 | Outpatient (CLI) | payer OTHER, MEDICAID, SELFPAY ==
[2021-06-10 12:41] LABS: Chlamydia trachomatis Negative (Negative); Mycoplasma genitalium Negative (Negative); Neisseria gonorrhoeae Negative (Negative)
== END ==
PROVIDERS: PCP Family Medicine; Visit Provider Family Medicine
DX: Z11.3 Encounter for screening for infections with a predominantly sexual mode of transmission (principal)
CPT/HCPCS: 87491; 87563; 87591

== ENCOUNTER → 2021-06-21 08:46 | Outpatient (CLI) | payer OTHER, MEDICAID, SELFPAY ==
[2021-06-21 11:04] LABS: HCG Quantitative /Beta subunit < 2.4 mIU/mL
== END ==
PROVIDERS: PCP Family Medicine; Referring Provider Physician Assistant; Visit Provider Physician Assistant
DX: Z32.01 Encounter for pregnancy test, result positive (principal); N39.0 Urinary tract infection, site not specified
CPT/HCPCS: 36415; 81002; 81025; 84702; 87077; 87086; 87186